=== PATIENT | female | born 1945 | race Caucasian/White ===

== ENCOUNTER → 2020-05-21 13:28 | Outpatient (CLI) | payer MEDICARE, SELFPAY ==
--- NOTE | 2020-05-21 | DI.ECHO.S_ITS ---
[facility] +---------+ : : [address] : [address] [place] : : : : [id number] : : : : Phone: [phone]---------+ Echocardiogram Report + + :Name: HARSHAL NUNN Study Date: 05/21/2020 Height: 63 in : :[facility] Weight: 174 lb : : Gender: Female BSA: 1.8 m2 : :: 1945 Age: 74 yrs BP: 137/86 mmHg: :Reason For Study: ATRIAL FIBRILLATION : :Ordering Physician: EDUIN, : :PUSHPA Performed By: Latanya Freeman : :Referring: PUSHPA DURANT : + + Interpretation Summary 1) Normal left ventricular size, thickness, wall motion, and systolic function (EF 55-60%). 2) Normal right ventricular size and function. 3) No significant valvular abnormalties. 4) No prior Echo available for comparison. Procedure: A two-dimensional transthoracic echocardiogram with color flow and Doppler was performed. The study quality was technically adequate. There is no prior echocardiogram noted for this patient. The patient was in atrial fibrillation with heart rates between 82-104 bpm during the exam. Left Ventricle: The left ventricle is normal in size and wall thickness. The ejection fraction is estimated to be 55-60%. Left ventricular systolic function appears normal without focal wall motion abnormalities. Diastolic function could not be accurately assessed due to atrial fibrillation. Right Ventricle: The right ventricle is normal in size and function. Atria: The left atrium is moderately dilated. Right atrial size is normal. There is no Doppler evidence for an interatrial shunt. Mitral Valve: There is mild mitral annular calcification. The mitral valve is normal in structure and function. There is trace mitral regurgitation. Aortic Valve: The aortic valve is trileaflet. The aortic valve opens well. There is no aortic valve stenosis. No aortic regurgitation is present. Tricuspid Valve: The tricuspid valve is normal in structure and function. The right ventricular systolic pressure is estimated to be at least 27 mmHg based on an estimated right atrial pressure of 3 mm Hg. There is trace tricuspid regurgitation. Pulmonic Valve: The pulmonic valve is normal in structure and function. There is no pulmonic valvular regurgitation. Great Vessels: The aortic root is normal size. The dimensions of the ascending aorta are normal. The IVC is of normal diameter and collapses greater than 50% with a sniff. This suggests a low right atrial pressure of 3 mm Hg. Pericardium/ Pleura There is no pericardial effusion. There is no pleural effusion. MMode/2D Measurements & Calculations LVIDd: 3.9 cm LVOT diam: 2.0 cm LVIDs: 2.6 cm Ao root diam: 3.3 cm FS: 35.3 % asc Aorta Diam: 3.1 cm EPSS: 0.86 cm Ao Arch Diam (Prox Trans): 2.7 cm IVSd: 0.83 cm LVPWd: 0.91 cm LV blandon. diameter/BSA (cm/m^2): 2.2 LV sys. diameter/BSA (cm/m^2): 1.4 LA A2 area: 20.0 cm2 RA long axis: 4.5 cm LA A4 area: 21.3 cm2 RA area: 16.5 cm2 LA length (vol): 5.1 cm RA vol: 51.1 ml LA vol: 71.2 ml RA : 28.0 ml/m2 LA vol index: 39.1 ml/m2 IVC diam: 1.5 cm RVD1 (basal): 3.6 cm Doppler Measurements & Calculations Ao V2 max: 93.1 cm/sec LVOT Max Mendez: 70.6 cm/sec Ao V2 mean: 70.0 cm/sec LV V1 max P.0 mmHg Ao max P.5 mmHg LV V1 VTI: 13.1 cm Ao mean P.1 mmHg FRANCISCO J(I,D): 2.3 cm2 Ao V2 VTI: 17.8 cm FRANCISCO J(V,D): 2.4 cm2 sev ratio: 0.73 FRANCISCO J indexed to BSA (cm^2/m^2): 1.3 MV E max mendez: 90.5 cm/sec TR max mendez: 246.4 cm/sec Med Peak E' Mendez: 11.5 cm/sec TR max P.3 mmHg E/E' med: 7.9 PA V2 max: 55.6 cm/sec Lat Peak E' Mendez: 14.6 cm/sec PA V2 mean: 36.3 cm/sec E/E' lat: 6.2 PA mean P.60 mmHg E/e' average: 7.0 PA pr(Accel): 25.9 mmHg MV dec time: 0.15 sec SV(LVOT): 41.5 ml Reading Physician:12:43 PM
== END ==
PROVIDERS: PCP Physician Assistant Medical; Referring Provider Physician Assistant Medical; Visit Provider Internal Medicine Cardiovascular Disease
DX: I48.11 Longstanding persistent atrial fibrillation (principal)
CPT/HCPCS: 93306

== ENCOUNTER → 2021-03-18 11:38 | Outpatient (CLI) | payer MEDICARE, SELFPAY ==
[2021-03-18 13:57] LABS: COVID19 -Nasal RAPID Negative (Negative)
== END ==
PROVIDERS: PCP Physician Assistant Medical; Visit Provider Nurse Practitioner Family
DX: Z20.822 Contact with and (suspected) exposure to COVID-19 (principal)
CPT/HCPCS: 87635; C9803

== ENCOUNTER 2021-03-19 10:31 | Day surgery (SDC) | payer MEDICARE, SELFPAY ==
[2021-03-18 10:28] VITALS: BMI 31.6
[2021-03-19 10:51] VITALS: BP 130/90; PULSE 95; RESP 16; TEMP 36.9; O2SAT 96; BMI 31.6
--- NOTE | 2021-03-19 12:48 | PM.PREOP ---
Pre-operative Note Interval Note History & Physical reviewed/Exam performed by Physician: Yes Changes to H&P: No
[2021-03-19] MEDS: CEFAZOLIN 1 GM VIAL 2 GM IV (13:20)
--- NOTE | 2021-03-19 13:39 | SUR.OPER ---
Supine on padded OR bed, head on pillow, Right armssecured on padded arm boards at <90 degrees abduction. Left arm positioned on padded arm table. legs uncrossed, safety belt at thigh, tape over blanket over lower legs.
[2021-03-19] MEDS: EPINEPHrine 1 MG/ML 0.15 MG INJ (13:50)
[2021-03-19] MEDS: BUPIVACAINE 0.25% (PF) VIAL 30 ML INJ (13:52)
[2021-03-19] MEDS: LACTATED RINGERS 1,000 ML 42 ML IV (14:26)
[2021-03-19 14:51] VITALS: BP 127/70; PULSE 95; RESP 14; TEMP 36.7; O2SAT 94
--- NOTE | 2021-03-19 14:54 | P.OP_ITS ---
Operative Date/Time/Diagnoses Date of procedure: 03/19/21 Time of procedure: 13:30 Pre-op diagnosis: Left intra-articular distal radius fracture Left 5th proximal phalanx fracture Post-op diagnosis: same Procedure & Clinicians Procedure: Open reduction internal fixation of a left intra-articular distal radius fracture. Closed reduction percutaneous pinning of a left 5th proximal phalanx fracture. CPT code 83191 CPT code 05819 Same procedure as scheduled: Yes Indications: Intra-articular distal radius fracture with a volar shear in volar translation of the carpus. Extra-articular displaced 5th proximal phalanx fracture Surgeon: Zac Anderson Click Yes if Unassisted: Yes Anesthesia Type: General Operative Notes Findings: Intra-articular fracture involving the distal radius. Patient had a intra-articular fragment involving the radial column and a volar shear fragment involving the volar column. Patient had volar translation of the carpus which was attached to the volar fragment. Displaced proximal phalanx fracture of the left 5th finger with no articular extension. Closure Type: primary Applied: implant(s) ([employer]Med volar fixed angle volar locking plate, 2 0.45 K- wires) Blood products transfused: none Tourniquet time (min): 66 Procedure in detail: On date of service, patient was met in the holding area where the operative site was signed and witnessed by the OR staff. The surgery was once again discussed with the patient and any remaining questions or concerns were answered to the patient's full satisfaction. Time-out was performed verifying patient's name procedure and operative site. Patient was taken back to the operating theater and placed on the operating table in a supine position. Great care was taken to ensure that all bony prominences were appropriately padded. Well-padded tourniquet was placed up along the upper extremity. Another time-out was performed verifying patient's name, procedure, and operative site. The upper extremity was then prepped and draped in the normal sterile fashion. Esmarch was used to exsanguinate the limb and the tourniquet was turned up to 250 mm of mercury. Fifteen blade was used to expose the distal radius. An incision was made over the FCR tendons. The FCR tendon was retracted and the floor of the tendon was opened with a 15 blade. The FPL tendon and muscle belly was retracted ulnarly giving us good visualization of the pronator quadratus. The pronator quadratus was excised off the distal radius using the 15 blade and then finished with a periosteal elevator. Next the brachia radialis attachment to the radial styloid was released to help with overall reduction. Retractors were placed allowing us good visualization of the distal radius as well as the shaft. A reduction maneuver was performed and a K-wire was placed holding a provisional reduction of the intra-articular distal radius fracture. C-arm was brought in to verify overall reduction. We were able to reduce the volar translation of the carpus. Once we were satisfied with the overall reduction, a plate was placed and held provisionally with K-wires. C-arm was once again used to verify plate positioning as well as reduction. The plate was then fixated to the distal fragment using locking screws. Lateral C-arm views were used to verify that the screws were not intra-articular or broaching the dorsal cortex. At this point we are able to use the plate to help fine tune the overall reduction. Once we were satisfied with the overall reduction the plate was then secured to the shaft with a combination of locking and nonlocking screws. Final x-rays were obtained. On the final x-rays there was no volar translation of the carpus and a good return of maintenance of radial height, inclination, and tilt. The wound was copiously irrigated and closed in a layered fashion. Next, we turned our attention to the 5th finger. Close reduction and manipulation of the finger was performed reducing the proximal phalanx fracture. Under C-arm visualization 2 K-wires were placed going proximal to the distal in a crisscross fashion providing good fixation of the fracture site. Pins were bent and cut and pin caps were placed. Dressings were placed around the pin in the 4th and 5th finger were cleaned dried and dressed. The wrist was also dressed and a splint was placed immobilizing the wrist as well as the 4th and 5th finger in a boxer type splint. Patient was taken to the PACU in stable condition. Complications: none Post-operative Condition: stable Disposition: PACU Plan for aftercare: Patient be immobilized for 2 weeks. At 2 weeks patient can be placed into a hand based splint immobilizing the proximal phalanx with no restrictions to wrist range of motion.
[2021-03-19 14:56] VITALS: BP 131/69; PULSE 85; RESP 12; O2SAT 94
[2021-03-19 15:07] VITALS: BP 109/77; PULSE 103; RESP 12; O2SAT 94
[2021-03-19 15:10] VITALS: BP 118/65; PULSE 100; RESP 12; O2SAT 94
[2021-03-19 15:15] VITALS: BP 118/65; PULSE 99; RESP 16; O2SAT 94
== END 2021-03-19 15:40 | disposition home or self-care (01) ==
PROVIDERS: PCP Physician Assistant Medical; Referring Provider Orthopaedic Surgery; Visit Provider Orthopaedic Surgery
PROC: (CPT 25608; principal; 2021-03-19 12:30)
DX: S52.572A Other intraarticular fracture of lower end of left radius, initial encounter for closed fracture (principal); S62.397A Other fracture of fifth metacarpal bone, left hand, initial encounter for closed fracture; W01.0XXA Fall on same level from slipping, tripping and stumbling without subsequent striking against object, initial encounter; Y93.01 Activity, walking, marching and hiking; Y92.410 Unspecified street and highway as the place of occurrence of the external cause; I48.91 Unspecified atrial fibrillation; E66.9 Obesity, unspecified; Z68.31 Body mass index [BMI] 31.0-31.9, adult
CPT/HCPCS: 25608; 26735; J0171; J0690; J3010

== ENCOUNTER → 2022-03-03 11:39 | Outpatient (CLI) | payer MEDICARE, SELFPAY ==
--- NOTE | 2022-03-03 | DI.RAD.S_ITS ---
PROCEDURE: XR DEXA AXIAL SKELETON INDICATIONS: Other specified menopausal disorders COMPARISON: None. FINDINGS: This blank DEXA report has been sent in error by the PACS system. The correct and complete report will be forthcoming in 1-2 days. Thank you for your patience and understanding. Dictated by: Nba Shirley M.D. on 03/03/2022 at 15:01 Approved by: Nba Shirley M.D. on 03/03/2022 at 15:01
== END ==
PROVIDERS: PCP Physician Assistant; Referring Provider Physician Assistant; Visit Provider Physician Assistant
DX: Z78.0 Asymptomatic menopausal state (principal); Z13.820 Encounter for screening for osteoporosis; Z79.890 Hormone replacement therapy
CPT/HCPCS: 77080

== ENCOUNTER → 2022-07-01 11:55 | Outpatient (CLI) | payer MEDICARE, SELFPAY ==
[2022-07-01 12:23] LABS: Add Manual Diff / Slide Review NO; Basophils Absolute Auto 100 /uL (0-100); Basophils Percent Auto 1.1 % (0-2); Eosinophils Absolute Auto 200 /uL (0-450); Eosinophils Percent Auto 2.6 % (2-4); Hematocrit 44.5 % (36-46); Hemoglobin 14.7 g/dL (12.0-16.0); Lymphocytes Absolute Auto 1700 /uL (1100-4500); Lymphocytes Percent Auto 19.4 % (25-40); Mean Corpuscular HGB Conc 32.9 % (30-36); Mean Corpuscular Hemoglobin 29.5 PG (26-34); Mean Corpuscular Volume 89.6 fL (80-100); Monocytes Absolute Auto 800 /uL (0-900); Monocytes Percent Auto 9.3 % (3-14); Neutrophils Absolute Auto 6000 /uL (1500-7000); Neutrophils Percent Auto 67.6 % (50-75); Platelet Count 259 X10^3/uL (150-400); Red Blood Cell Count 4.97 X10^6/uL (4.0-5.2); Red Cell Distribution Width 13.8 % (11.6-14.8); White Blood Cell Count 8.9 X10^3/uL (4.5-11.0)
[2022-07-01 14:05] LABS: BUN Creatinine Ratio 23.1 (6-22); Blood Urea Nitrogen 15 mg/dL (7-17); Calcium 9.8 mg/dL (8.4-10.2); Carbon Dioxide 28 mmol/L (22-32); Chloride 102 mmol/L (98-107); Cholesterol 138 mg/dL (140-199); Estimated Glomerular Filt Rate > 60 mL/min (>60); Glucose 81 mg/dL (80-110); HDL Cholesterol 54 mg/dL (40-60); HEMOLYSIS < 15 (0-50); LDL Cholesterol Calculated 58 mg/dL (<100); Potassium 4.5 mmol/L (3.4-5.1); Sodium 138 mmol/L (137-145); Triglycerides 131 mg/dL (35-150)
== END ==
PROVIDERS: PCP Physician Assistant; Referring Provider Internal Medicine Cardiovascular Disease; Visit Provider Internal Medicine Cardiovascular Disease
DX: E78.5 Hyperlipidemia, unspecified (principal); Z79.01 Long term (current) use of anticoagulants; I48.11 Longstanding persistent atrial fibrillation
CPT/HCPCS: 36415; 80048; 80061; 85025

== ENCOUNTER → 2023-01-13 15:33 | Outpatient (CLI) | payer MEDICARE, SELFPAY | PROVIDERS: PCP Physician Assistant; Referring Provider Internal Medicine; Visit Provider Internal Medicine | DX: R05.3 Chronic cough (principal); J98.8 Other specified respiratory disorders; R05.9 Cough, unspecified | CPT/HCPCS: 71046; 94060; 94726; 94729 ==

== ENCOUNTER → 2023-01-13 17:11 | Outpatient (CLI) | payer MEDICARE, SELFPAY ==
--- NOTE | 2023-01-13 17:14 | DI.RAD.S_ITS ---
PROCEDURE: XR CHEST 2V INDICATIONS: COUGH, UNSPECIFIED TECHNIQUE: 2 views of the chest were acquired. COMPARISON: None. FINDINGS: Surgical changes and devices: None. Lungs and pleura: Lungs are clear, aside from a 1.8 cm nodular opacity seen on the frontal view projected over the right lung base. No pleural effusions or pneumothorax. Mediastinum: Mediastinal contours are normal. Heart size is normal. Bones and chest wall: No suspicious bony abnormalities. Soft tissues appear unremarkable. IMPRESSION: 1.8 cm nodular opacity projected over the right lung base and pulmonary nodule cannot be excluded. Recommend comparison with prior chest imaging if available and if not, chest CT. Dictated by: Blanco CRUZ Interpreted: Ar Lindsay MD on 01/13/2023 at 20:34 Approved by: Ar Lindsay M.D. on 01/14/2023 at 11:13
== END ==
PROVIDERS: PCP Physician Assistant; Referring Provider Internal Medicine; Visit Provider Internal Medicine
DX: R05.9 Cough, unspecified (principal)
CPT/HCPCS: 71046

== ENCOUNTER → 2023-10-17 13:55 | Outpatient (CLI) | payer MEDICARE, SELFPAY ==
--- NOTE | 2023-10-17 14:00 | DI.RAD.S_ITS ---
PROCEDURE: XR KNEE RT 3V INDICATIONS: KNEE PAIN TECHNIQUE: 3 views of the knee were acquired. COMPARISON: [facility], CR, XR KNEE LT 3V, 10/17/2023, 14:12. FINDINGS: Bones: No fractures or dislocations. Tricompartment degenerative arthritis with a degree of medial and lateral compartment joint space loss. No suspicious bony lesions. Soft tissues: No joint effusion. No suspicious soft tissue calcifications. IMPRESSION: Degenerative arthritis of the right knee. Dictated by: Sarkis Muhammad M.D. on 10/17/2023 at 15:18 Approved by: Sarkis Muhammad M.D. on 10/17/2023 at 15:19
--- NOTE | 2023-10-17 14:00 | DI.RAD.S_ITS ---
PROCEDURE: XR KNEE LT 3V INDICATIONS: KNEE PAIN TECHNIQUE: 3 views of the knee were acquired. COMPARISON: [facility], CR, XR KNEE RT 3V, 10/17/2023, 14:12. FINDINGS: Bones: No fractures or dislocations. Tricompartment degenerative arthritis. There is a degree of medial and lateral compartment joint space loss. No suspicious bony lesions. Soft tissues: No joint effusion. No suspicious soft tissue calcifications. IMPRESSION: Degenerative arthritis of the left knee. Dictated by: Sarkis Muhammad M.D. on 10/17/2023 at 15:17 Approved by: Sarkis Muhammad M.D. on 10/17/2023 at 15:18
== END ==
PROVIDERS: PCP Physician Assistant; Referring Provider Physician Assistant; Visit Provider Physician Assistant
DX: M17.0 Bilateral primary osteoarthritis of knee (principal); M25.561 Pain in right knee; M25.562 Pain in left knee
CPT/HCPCS: 73562